=== PATIENT | female | born 1970 | race Caucasian/White ===

== ENCOUNTER 2017-07-17 15:26 | Emergency (ER) | payer BC, OTHER ==
[~2017-07-17 15:26] MED LIST: Donnatal Elixir 16.2 MG/5 ML UDCUP ONE
[2017-07-17] MEDS ORDERED: Ondansetron HCl/PF 4 MG/2 ML Vial ONE (15:57)
[2017-07-17] MEDS ORDERED: Ketorolac Tromethamine 30 MG/ML VIAL ONE (15:57)
[2017-07-17] MEDS ORDERED: Mag-Al Plus 1200 MG/1200 MG/120 MG/30 ML UDCUP ONE (15:58)
[2017-07-17] MEDS ORDERED: Donnatal Elixir 16.2 MG/5 ML UDCUP ONE (15:58)
[2017-07-17] MEDS ORDERED: Lidocaine Viscous Sol 2% 15 ml UD Cup ONE (15:58)
--- NOTE | 2017-07-17 16:10 | RAD ---
PORTABLE CHEST ONE VIEW 07/17/17 at 3:44 p.m. HISTORY: Upper abdominal pain. FINDINGS: Comparison made with exam of 12/10/14. The heart size is normal. No focal areas of consolidation, pneumothorax or pleural effusions are seen . IMPRESSION: No radiographic evidence of acute cardiopulmonary process. POS: [facility]
[2017-07-17 16:22] LABS: #Basophils 0.1 thou/uL (0.0-0.2); #Eosinphils 0.4 thou/uL (0.0-0.7); #Lymphocytes 3.3 thou/uL (1.20-3.40); #Monocytes 0.7 thou/uL (0.11-0.59); #Neutrophils 8.9 thou/uL (1.40-6.50); %Basophils 0.4 % (0.0-1.0); %Eosinophils 2.9 % (0.0-10.0); %Lymphocytes 24.6 % (21.0-51.0); %Monocytes 4.9 % (0.0-10.0); %Neutrophils 67.2 % (42.0-75.0); Hemoglobin 11.4 g/dL (12.0-16.0); Mean Corpuscular HGB CONC 33.3 g/dL (32.0-36.0); Mean Corpuscular Hemoglobin 31.9 pg (27.0-31.0); Mean Corpuscular Volume 95.9 fl (81.0-99.0); Platelet Count 420 thou/uL (130-400); RBC Distribution Width 12.2 % (11.5-14.5); Red Blood Cell (RBC) Count 3.58 mill/uL (4.20-5.40); White Blood Cell (WBC) Count 13.3 thou/uL (4.8-10.8)
[2017-07-17 16:24] LABS: Bilirubin Negative (Negative); Blood, Urine Small (Negative); Clarity Hazy (Clear); Glucose, Urine (Dipstick) Negative (Negative); Leukocyte Small (Negative); Nitrite Negative (Negative); Protein, Urine (Dipstick) Trace mg/dL (Neg-Trace)
[2017-07-17 16:27] LABS: Bacteria/HPF 1+ HPF (None Seen); RBC/HPF 0-3 HPF (0-3); WBC/HPF 0-3 HPF (0-3)
[2017-07-17 16:42] LABS: ALT (SGPT) 19 U/L (8-55); AST (SGOT) 13 U/L (5-34); Albumin 3.4 g/dL (3.5-5.0); Alkaline Phosphatase 62 U/L (40-150); Anion Gap 15 mmol/L (10-20); BUN (Urea Nitrogen) 13 mg/dL (7.0-18.7); Bilirubin, Total 0.4 mg/dL (0.2-1.2); CK (CPK) 39 U/L (29-168); Calc. Creatinine Clearance 0 mL/min (70-130); Calcium 8.8 mg/dL (7.8-10.44); Carbon Dioxide 22 mmol/L (22-29); Chloride 105 mmol/L (98-107); Estimated GFR-MDRD Greater than 90; Glucose 106 mg/dL (70-105); Lipase 13 U/L (8-78); Potassium 3.9 mmol/L (3.5-5.1); Protein, Total 6.4 g/dL (6.0-8.3); Sodium 138 mmol/L (136-145)
[2017-07-17] MEDS ORDERED: Pantoprazole 40 MG VIAL ONE (18:30)
== END 2017-07-17 18:40 | disposition home or self-care (01) ==
LOC: MADERS 15:26
DX: K29.00 Acute gastritis without bleeding (principal); K21.9 Gastro-esophageal reflux disease without esophagitis; I10 Essential (primary) hypertension; Z87.891 Personal history of nicotine dependence
CPT/HCPCS: 36415; 71045; 80053; 81001; 82150; 82550; 83690; 85025; 87086; 96374; 96375; C9113; J1885; J2405

== ENCOUNTER 2017-12-18 12:02 | Emergency (ER) | payer BC, OTHER ==
[2017-12-18] MEDS ORDERED: Morphine 4 MG/ML VIAL ONE (12:44)
--- NOTE | 2017-12-18 13:10 | RAD ---
RIGHT KNEE FOUR VIEWS: HISTORY: Fall. Right knee injury. FINDINGS: Joint spaces are preserved. No acute fracture, dislocation, or fluid distention of the suprapatellar bursa. IMPRESSION: No acute osseous abnormalities are demonstrated. POS: [facility]
--- NOTE | 2017-12-18 13:10 | CT ---
CT HEAD NONCONTRAST: HISTORY: Fall. Head injury. COMPARISON: 11/19/2011 FINDINGS: There is no evidence of acute intracranial hemorrhage or infarct. Dystrophic calcification associate d with a focus of encephalomalacia at the right cerebellar hemisphere is stable. There is no mass ef fect or shift of midline structures. The visualized paranasal sinuses remain well aerated. Soft tis josie swelling overlies the left supratemporal scalp. IMPRESSION: No acute intracranial abnormalities are demonstrated. POS: [facility]
--- NOTE | 2017-12-18 13:11 | RAD ---
LEFT KNEE FOUR VIEWS: HISTORY: Fall. Left knee injury. FINDINGS: Joint spaces are preserved. No acute fracture, dislocation, or fluid distention of the subpatellar b ursa. IMPRESSION: No acute osseous abnormalities are demonstrated. POS: [facility]
--- NOTE | 2017-12-18 13:14 | RAD ---
LEFT HAND THREE VIEWS: HISTORY: Fall. Left hand injury. FINDINGS: Osteophytosis, articular irregularity, and subchondral sclerosis are most pronounced at the scapho-tr iquetral joint and the first carpometacarpal joint. No acute fracture, dislocation, or aggressive os seous erosions. IMPRESSION: 1. 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 2. No acute osseous abnormalities are demonstrated. POS: [facility]
== END 2017-12-18 13:15 | disposition home or self-care (01) ==
LOC: MADERS 12:02
DX: S00.03XA Contusion of scalp, initial encounter (principal); S80.02XA Contusion of left knee, initial encounter; S80.01XA Contusion of right knee, initial encounter; S60.222A Contusion of left hand, initial encounter; K21.9 Gastro-esophageal reflux disease without esophagitis; I10 Essential (primary) hypertension; J40 Bronchitis, not specified as acute or chronic; Z87.891 Personal history of nicotine dependence; W18.30XA Fall on same level, unspecified, initial encounter
CPT/HCPCS: 70450; 96374; J2270

== ENCOUNTER 2018-01-21 08:25 | Emergency (ER) | payer BC, OTHER ==
[~2018-01-21 08:25] MED LIST changes: -Donnatal Elixir 16.2 MG/5 ML UDCUP ONE; +Lactated Ringer's 1,000 ML BAG ONE; +Sodium Chloride 0.9% 1,000 ML BAG ONE; +Sodium Chloride 0.9% 100 ML BAG ONE
[2018-01-21] MEDS ORDERED: Pantoprazole 40 MG VIAL ONE (08:55)
[2018-01-21] MEDS ORDERED: Ondansetron HCl/PF 4 MG/2 ML Vial ONE (08:55)
[2018-01-21] MEDS ORDERED: Morphine 4 MG/ML VIAL ONE (08:55)
[2018-01-21 09:19] LABS: #Basophils 0.2 thou/uL (0.0-0.2); #Eosinphils 0.2 thou/uL (0.0-0.7); #Lymphocytes 2.9 thou/uL (1.20-3.40); #Monocytes 0.8 thou/uL (0.11-0.59); #Neutrophils 13.4 thou/uL (1.40-6.50); %Basophils 0.9 % (0.0-1.0); %Eosinophils 0.9 % (0.0-10.0); %Lymphocytes 16.9 % (21.0-51.0); %Monocytes 4.3 % (0.0-10.0); Mean Corpuscular HGB CONC 33.2 g/dL (32.0-36.0); Mean Corpuscular Hemoglobin 31.5 pg (27.0-31.0); Mean Corpuscular Volume 94.9 fL (78.0-98.0); Mean Platelet Volume 6.5 fL (7.4-10.4); Platelet Count 509 thou/uL (130-400); RBC Distribution Width 13.2 % (11.5-14.5); Red Blood Cell (RBC) Count 4.43 mill/uL (4.20-5.40); White Blood Cell (WBC) Count 17.4 thou/uL (4.8-10.8)
[2018-01-21] MEDS ORDERED: Promethazine HCl 25 MG/ML VIAL ONE (09:22)
[2018-01-21 10:02] LABS: Bilirubin Negative (Negative); Blood, Urine Trace (Negative); Clarity Slightly Cloudy (Clear); Glucose, Urine (Dipstick) Negative (Negative); Leukocyte Small (Negative); Nitrite Negative (Negative); Protein, Urine (Dipstick) Negative (Neg-Trace); Urobilinogen 0.2 mg/dL (0.2-1.0)
[2018-01-21 10:03] LABS: Bacteria/HPF Rare-Few HPF (None Seen); RBC/HPF 0-3 HPF (0-3)
[2018-01-21 10:05] LABS: Pregnancy Test - Urine (BHCG) Negative (Negative); Pregu Control Background? CLEAR/WHITE (CLR/WHITE); Pregu Control Bar Appear? YES (CONTROL BAR)
--- NOTE | 2018-01-21 10:12 | CT ---
CT ABDOMEN AND PELVIS WITH IV CONTRAST: History: Abdominal pain. Recent abdominal surgery for perforated gastric ulcer. FINDINGS: Calcified granulomata at the lung bases are consistent with healed granulomatous disease. There are p ost-operative changes at the GE junction. A small pocket of gas posterior to the lower esophagus is f avored to be a part of the stomach. This is in the region of post-operative change. Urinary bladder is unremarkable. No evidence of bowel obstruction. Sterilization clips at each adnexa . Bilateral pars intraarticularis defects at the L5 level with grade I spondylolisthesis. An enlarged l eft L5 transverse process articulates with the upper left sacrum. IMPRESSION: No evidence of obstructive of active inflammation. Post-operative changes at the GE junction are appa rent with a small paraesophageal hernia. No evidence of complication. Clinical correlation regarding other signs and symptoms of complication related to the small paraesophageal hernia is required. 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 These are potential causes of lower back pain. POS: [facility]
[2018-01-21] MEDS ORDERED: Iopamidol 370 76% 100 ML VIAL ONE (10:13)
[2018-01-21 10:21] LABS: ALT (SGPT) 23 U/L (8-55); AST (SGOT) 31 U/L (5-34); Alkaline Phosphatase 62 U/L (40-150); Anion Gap 19 mmol/L (10-20); BUN (Urea Nitrogen) 11 mg/dL (7.0-18.7); Bilirubin, Total 1.2 mg/dL (0.2-1.2); Calc. Creatinine Clearance 0 mL/min (70-130); Calcium 9.2 mg/dL (7.8-10.44); Carbon Dioxide 17 mmol/L (22-29); Chloride 104 mmol/L (98-107); Estimated GFR-MDRD 88; Globulin 3.2 g/dL (2.4-3.5); Glucose 102 mg/dL (70-105); Lipase 21 U/L (8-78); Potassium 3.1 mmol/L (3.5-5.1); Protein, Total 7.2 g/dL (6.0-8.3); Sodium 137 mmol/L (136-145)
[2018-01-21] MEDS ORDERED: Potassium Chloride 10 MEQ TAB ONE (10:56)
[2018-01-21] MEDS ORDERED: Piperacillin/Tazobactam 3.375 GM VIAL ONE (11:38)
--- NOTE | 2018-01-21 12:23 | ULT ---
SONOGRAM RIGHT UPPER QUADRANT: Date: 01/21/18 HISTORY: Right upper quadrant pain. FINDINGS: Within the dependent portion of the gallbladder lumen, small amount of echogenic material is present. No shadowing stones. Gallbladder is distended up to 11.2 cm. No gallbladder wall thickening or peric holecystic fluid. Patient was reportedly tender over the gallbladder fossa at the time of the exam. C ommon duct is 0.4 cm. Liver unremarkable without focal mass or intrahepatic biliary dilatation. No fr ee fluid is apparent. IMPRESSION: 1. Gallbladder distention and positive sonographic Loza's sign are findings suggestive of acute ch olecystitis, although no other objective findings are evident. Clinical correlation regarding other s igns and symptoms of acute cholecystitis is required. 2. Small amount of biliary sludge suggests chronic gallbladder dyskinesis. POS: [facility]
== END 2018-01-21 12:25 | disposition short-term general hospital (02) ==
LOC: MADERS 08:25
DX: R11.2 Nausea with vomiting, unspecified (principal); K21.9 Gastro-esophageal reflux disease without esophagitis; I10 Essential (primary) hypertension; Z87.891 Personal history of nicotine dependence
CPT/HCPCS: 36415; 74177; 76705; 80053; 81003; 81015; 81025; 83605; 83690; 83735; 85025; 87040; 96361; 96365; 96375; C9113; J2270; J2405; J2543; J2550; J7050; J7120

== ENCOUNTER 2020-04-04 03:01 | Emergency (ER) | payer BC ==
[2020-04-04] MEDS ORDERED: Ondansetron PF 4 MG/2 ML Vial ONE (03:44)
[2020-04-04] MEDS ORDERED: Morphine 4 MG/ML VIAL ONE (03:44)
[2020-04-04] MEDS ORDERED: Sodium Chloride 0.9% 1,000 ML ONE ×2 (03:44→06:06)
[2020-04-04 03:50] LABS: Bilirubin Negative (Negative); Blood, Urine Moderate (Negative); Clarity Hazy (Clear); Glucose, Urine (Dipstick) Negative (Negative); Ketone, Urine Negative (Negative); Leukocyte Negative (Negative); Nitrite Negative (Negative); Protein, Urine (Dipstick) Trace mg/dL (Neg-Trace); Specific Gravity, Urine 1.025 (1.005-1.030); Urobilinogen 0.2 mg/dL (Less than 2); pH, Urine 5.5 (5.0-9.0)
[2020-04-04 03:54] LABS: Bacteria/HPF Rare-Few HPF (None Seen); Squamous Epithelial 0-3 HPF (0-3); WBC/HPF 0-3 HPF (0-3)
[2020-04-04 04:17] LABS: BHCG - Serum Negative (NEGATIVE); Pregs Control Background? CLEAR/WHITE (CLR/WHITE); Pregs Control Bar Appear? YES (CONTROL BAR)
[2020-04-04 04:24] LABS: #Lymphocytes 2.3 thou/uL (1.20-3.40); %Basophils 1.1 % (0.0-1.0); %Eosinophils 1.4 % (0.0-10.0); %Lymphocytes 20.3 % (21.0-51.0); %Monocytes 6.6 % (0.0-10.0); %Neutrophils 70.6 % (42.0-75.0); Mean Corpuscular HGB CONC 33.1 g/dL (32.0-36.0); Mean Corpuscular Hemoglobin 30.6 pg (27.0-31.0); Mean Corpuscular Volume 92.3 fL (78.0-98.0); Mean Platelet Volume 8.3 fL (7.4-10.4); Platelet Count 301 thou/uL (130-400); RBC Distribution Width 11.1 % (11.5-14.5); Red Blood Cell (RBC) Count 4.26 mill/uL (4.20-5.40)
[2020-04-04 04:25] LABS: #Basophils 0.1 thou/uL (0.0-0.2); #Eosinphils 0.2 thou/uL (0.0-0.7); #Monocytes 0.7 thou/uL (0.11-0.59)
[2020-04-04 04:28] LABS: ALT (SGPT) 27 U/L (8-55); AST (SGOT) 28 U/L (5-34); Albumin 3.9 g/dL (3.5-5.0); Alkaline Phosphatase 74 U/L (40-110); Anion Gap 19 mmol/L (10-20); BUN (Urea Nitrogen) 18 mg/dL (7.0-18.7); Bilirubin, Total 0.3 mg/dL (0.2-1.2); Calc. Creatinine Clearance 0 mL/min (70-130); Calcium 8.5 mg/dL (7.8-10.44); Carbon Dioxide 17 mmol/L (22-29); Chloride 105 mmol/L (98-107); Estimated GFR-MDRD 50; Globulin 2.9 g/dL (2.4-3.5); Glucose 111 mg/dL (70-105); Lipase 23 U/L (8-78); Protein, Total 6.8 g/dL (6.0-8.3); Sodium 138 mmol/L (136-145)
[2020-04-04] MEDS ORDERED: Sodium Chloride 0.9% 500 ML ONE (06:06)
[2020-04-04] MEDS ORDERED: Piperacillin/Tazobactam 4.5 GM VIAL ONE (06:06)
[2020-04-04] MEDS ORDERED: Sodium Chloride 0.9% 100 ML ONE (06:06)
[2020-04-04] MEDS ORDERED: Potassium Chloride 20 MEQ TAB ONE (06:11)
--- NOTE | 2020-04-04 07:11 | CT ---
PRELIMINARY REPORT/[facility]/EMERGENCY AFTER HOURS PROCEDURE: EXAM: CT Abdomen and Pelvis with Intravenous Contrast CLINICAL HISTORY: Llq pain that started last night before midnight TECHNIQUE: Axial computed tomography images of the abdomen and pelvis with intravenous contrast. CONTRAST: With; isovue 370; 100 mls COMPARISON: None provided. FINDINGS: LUNG BASES: No basilar airspace consolidation or pleural effusion. LIVER: Unremarkable. GALLBLADDER AND BILE DUCTS: Status post cholecystectomy. PANCREAS: Unremarkable. SPLEEN: Unremarkable. ADRENAL GLANDS: Unremarkable. KIDNEYS, URETERS, AND BLADDER: Unremarkable. No hydronephrosis or nephrolithiasis. No ureteral or cristofer dder calculi. STOMACH AND BOWEL: Status post Harjit procedure. Diffuse marked mural thickening with adjacent fat stranding of the colon which is compatible with col itis. Fluid throughout the visualized colon. No bowel obstruction. APPENDIX: No CT evidence for appendicitis. PERITONEUM: No free fluid. No free air. LYMPH NODES: No lymphadenopathy. REPRODUCTIVE: Unremarkable as visualized. VASCULATURE: Scattered atherosclerotic calcifications of the aorta. BONES: 1.2 cm sclerotic focus within the left iliac wing which is indeterminate. ABDOMINAL WALL AND SOFT TISSUES: Unremarkable. IMPRESSION: Diffuse marked mural thickening with adjacent fat stranding of the colon which is compati ble with colitis, which may be infectious, inflammatory or ischemic. 1.2 cm sclerotic focus within the left iliac wing which is indeterminate. Bone scan may be obtained for further evaluation as clinically indicated. ELECTRONICALLY SIGNED BY: Eli Del Angel MD Apr 04, 2020 5:49:57 AM CDT FINAL REPORT EXAM: CT ABDOMEN AND PELVIS HISTORY: Left lower quadrant pain, starting last night, just before midnight. COMPARISON: 03/04/2019. Procedure: Multiple contiguous axial images were obtained and a CT of the abdomen and pelvis with IV contrast. C oronal reformats were performed. FINDINGS: Lower Chest: Clear. Vessels: Normal caliber aorta . Heart: Normal heart size. No significant pericardial fluid. Abdomen: Portal vein:Patent. Gallbladder: Surgically absent. Liver: within normal limits. Pancreas: within normal limits. Spleen: within normal limits. Adrenals: within normal limits. Kidneys: Symmetric enhancement. No obstructive uropathy. Peritoneum: No ascites or free air, no fluid collection. Bowel: There appears to be evidence of a previous Harjit fundoplication. Multiple normal caliber cont rast-filled small bowel loops. Normal ileocecal junction. Appendix is not appreciated. Findings suggest previous appendectomy. There is mucosal thickening involving the cecum, ascending colon, bingham sverse colon and the junction of the sigmoid colon and descending colon. Correlate for colitis. Mesentery and Retroperitoneum: 1.1 cm right lower quadrant lymph node. Additional smaller lymph nodes are identified. Abdominal Wall: within normal limits. Pelvis: Reproductive Organs: Reproductive organs are unremarkable. Pelvis: No mass, lymphadenopathy, free air or free fluid. Bladder: within normal limits. Bones: within normal limits. IMPRESSION: 1. This report is in agreement with the initial report by [facility] 2. There is bowel wall thickening involving the colon, worrisome for colitis. Etiology could be an in fectious, inflammatory, or ischemic process. Transcribed Date/Time: 04/04/2020 7:41 AM
[2020-04-04] MEDS ORDERED: Morphine 2 MG/ML SYRINGE ONE (07:26)
[2020-04-04] MEDS ORDERED: Iopamidol 370 76% 100 ML VIAL ONE (13:49)
== END 2020-04-04 08:25 | disposition short-term general hospital (02) ==
LOC: MADERS 03:01
DX: K52.9 Noninfective gastroenteritis and colitis, unspecified (principal); K21.9 Gastro-esophageal reflux disease without esophagitis; I10 Essential (primary) hypertension; Z87.891 Personal history of nicotine dependence; Z79.899 Other long term (current) drug therapy
CPT/HCPCS: 74177; 80053; 81003; 81015; 83605; 83690; 84703; 85025; 87040; 96361; 96365; 96375; 96376; J2270; J2405; J2543; J3490; J7030; J7050; Q9967